=== PATIENT | male | born 1995 | race Two or more races ===

== ENCOUNTER 2022-10-23 09:38 | Outpatient (CLI) | payer OTHER | END 2022-10-23 10:05 | disposition home or self-care (01) | LOC: RX STUDY 09:38 | DX: K21.00 Gastro-esophageal reflux disease with esophagitis, without bleeding (principal); R10.13 Epigastric pain ==

== ENCOUNTER 2023-06-19 10:20 | Outpatient (CLI) | payer OTHER | END 2023-06-19 10:38 | disposition home or self-care (01) | LOC: TOM 10:20 | PROVIDERS: ATTEND Internal Medicine Pulmonary Disease | DX: J45.30 Mild persistent asthma, uncomplicated (principal); R06.02 Shortness of breath; R07.2 Precordial pain; Z87.891 Personal history of nicotine dependence ==